=== PATIENT | female | born 1970 | race Caucasian/White ===

== ENCOUNTER 2018-08-08 13:48 | Emergency (ER) | payer SELFPAY ==
[~2018-08-08] VITALS: Ht 165.1 cm; Wt 49.0 kg
[~2018-08-08 13:48] MED LIST: CIPR500T94 PO; DM/P295L2 PO; ONDA4TAB10 SL; dayquil PO
--- NOTE | 2018-08-08 14:03 | PHYS DOC ---
Past History Past Medical History: CAD, Pneumonia Additional Past Medical Histor: oral cancer Past Surgical History: , Tubal ligation, Other Additional Past Surgical Histo: feeding tube Smoking: Cigarettes Alcohol Use: Heavy Drug Use: Marijuana Adult General Chief Complaint Chief Complaint: OTHER COMPLAINTS HPI HPI Patient is a 48-year-old female presents with increasing difficulty swallowing, feeling like she is getting a gagging/choking sensation. This is been going on for the past 3-4 days. Patient has a history of an oral cancer that is pending surgery in [address] Cuba at . She also has a feeding tube placed due to difficulty swallowing. There were 3 additional buttons placed with this feeding tube and one of those came off and they are concerned about that as well. Patient is here with her sister. Denies any difficulty breathing. Nothing seems to make the symptoms better or worse.[] Review of Systems Review of Systems Constitutional: Denies fever or chills [] Eyes: Denies change in visual acuity, redness, or eye pain [] HENT: Denies nasal congestion, see history of present illness[] Respiratory: Denies cough or shortness of breath [] Cardiovascular: No chest pain or palpitations[] GI: Denies abdominal pain, nausea, vomiting, bloody stools or diarrhea [] : Denies dysuria or hematuria [] Musculoskeletal: Denies back pain or joint pain [] Integument: Denies rash or skin lesions [] Neurologic: Denies headache, focal weakness or sensory changes [] Endocrine: Denies polyuria or polydipsia [] All other systems were reviewed and found to be within normal limits, except as documented in this note. Allergies Allergies Allergies Coded Allergies Type Severity Reaction Last Updated Verified No Known Drug Allergies 08/08/18 No Physical Exam Physical Exam Constitutional: Well developed, cachectic, mild discomfort, ill appearing. [] HENT: Normocephalic, atraumatic, bilateral external ears normal, oropharynx shows elevation of the right side at the base of the tongue. Maceration on the oral pharynx, possible thrush. Uvula is midline. nose normal. [] Eyes: PERRLA, EOMI, conjunctiva normal, no discharge. [] Neck: Normal range of motion, no tenderness, supple, no stridor. [] Cardiovascular:Heart rate is tachycardic with a regular rhythm, no murmur [] Lungs & Thorax: Bilateral breath sounds clear to auscultation [] Abdomen: Bowel sounds normal, soft, no tenderness, no masses, no pulsatile m asses. Feeding tube is in place. 2 "buttons" are in place at the 11:00 and the 7 o'clock position reference the feeding tube.[] Skin: Warm, dry, no erythema, no rash. [] Back: No tenderness, no CVA tenderness. [] Extremities: No tenderness, no cyanosis, no clubbing, ROM intact, no edema. [] Neurologic: Alert and oriented X 3, normal motor function, normal sensory function, no focal deficits noted. [] Psychologic: Affect normal, judgement normal, mood normal. [] EKG EKG [] Radiology/Procedures Radiology/Procedures [] Course & Med Decision Making Course & Med Decision Making Pertinent Labs and Imaging studies reviewed. (See chart for details) ED course: Patient arrived, was placed in bed, and tolerated exam well. She was noted to be tachycardic so IV access was established, basic lab work was obtained, an IV fluids were started. Consultation was made with Dr. Cuba at . He was in surgery, however, discussed care with his nurse who knows the patient well. Recommendation was for the patient to be transferred to to the ENT surgery service for further evaluation and treatment given her cancer history and failure of current outpatient care. She was accepted by Dr. Mejia at for further evaluation within the emergency department. Discussed laboratory findings and plan with patient and family, both of whom indicated understanding. She was transferred in improved condition. 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 Foregoing specific treatment for the calcium given that she is dehydrated, and there will be some improvement with d ilutional effects of the saline. She is being transferred due to not having ENT nor oncology services available here at [facility]. She does not appear to be in imminent threat of airway compromise, so do not believe that intubation is indicated at this time.[] Dragon Disclaimer Dragon Disclaimer This electronic medical record was generated, in whole or in part, using a voice recognition dictation system. Departure Departure: Impression: Primary Impression: Oral malignant neoplasm Additional Impressions: Hypercalcemia Dehydration Complication of feeding tube Disposition: 05 TRANSFER OTHER Condition: IMPROVED Referrals: PCP,NO (PCP) Problem Qualifiers RALEIGH VARGAS DO August 08, 2018 14:03
[2018-08-08] MEDS: IV NORMAL SALINE 1,000ML 1,000 ML IV ONE ×2 (14:11→15:29)
[2018-08-08 14:28] LABS: BASO % 0 % (0-3); EOS # 0.2 x10^3/uL (0.0-0.7); EOS % 1 % (0-3); HEMATOCRIT 40.9 % (36.0-47.0); HEMOGLOBIN 13.7 g/dL (12.0-15.5); LYMPH # 0.8 x10^3/uL (1.0-4.8); LYMPH % 3 % (24-48); MEAN CORPUSCULAR HEMOGLOBIN 31 pg (25-35); MEAN CORPUSCULAR HGB CONC 34 g/dL (31-37); MEAN CORPUSCULAR VOLUME 93 fL (79-100); MONO # 2.5 x10^3/uL (0.0-1.1); MONO % 8 % (0-9); NEUT # 30.1 x10^3uL (1.8-7.7); NEUT % 89 % (31-73); PLATELET COUNT 419 x10^3/uL (140-400); RED BLOOD COUNT 4.38 x10^6/uL (3.50-5.40); RED CELL DISTRIBUTION WIDTH 13.1 % (11.5-14.5); WHITE BLOOD COUNT 33.7 x10^3/uL (4.0-11.0)
[2018-08-08 14:39] LABS: ALBUMIN 3.3 g/dL (3.4-5.0); ALBUMIN/GLOBULIN RATIO 0.7 (1.0-1.7); CREATININE 0.8 mg/dL (0.6-1.0); GFR 76.2; POTASSIUM 3.6 mmol/L (3.5-5.1); TOTAL BILIRUBIN 0.4 mg/dL (0.2-1.0); TOTAL PROTEIN 8.1 g/dL (6.4-8.2)
[2018-08-08 14:41] LABS: CALCIUM 14.4 mg/dL (8.5-10.1)
[2018-08-08 15:13] LABS: % ATYL 2 % (0-0); % LYMPHS 2 % (24-48); % MONOS 3 % (0-10); % SEGS 93 % (35-66); PLT ESTIMATE ADEQUATE (ADEQUATE)
[2018-08-08 15:15] LABS: ANISOCYTOSIS SLIGHT; TOXIC GRANULATION SLIGHT; TOXIC VACUOLATION PRESENT
[2018-08-08 16:00] VITALS: BP 130/71
== END 2018-08-08 16:00 | disposition short-term general hospital (02) ==
LOC: ER 13:48
DX: C06.9 Malignant neoplasm of mouth, unspecified (principal); E83.52 Hypercalcemia; E86.0 Dehydration; K94.29 Other complications of gastrostomy; I25.10 Atherosclerotic heart disease of native coronary artery without angina pectoris; F17.210 Nicotine dependence, cigarettes, uncomplicated; F10.20 Alcohol dependence, uncomplicated; Y90.9 Presence of alcohol in blood, level not specified
CPT/HCPCS: 36415; 80053; 85007; 85025; 96360; 99285-25; J7030

== ENCOUNTER 2018-08-27 15:46 | Emergency (ER) | payer SELFPAY ==
[~2018-08-27] VITALS: Ht 165.1 cm; Wt 49.0 kg
[2018-08-27 16:15] VITALS: BP 122/65
[2018-08-27] MEDS ORDERED: roxicodone PEG (16:25)
--- NOTE | 2018-08-27 16:25 | PHYS DOC ---
Past History Past Medical History: CAD, Cancer, Pneumonia Additional Past Medical Histor: oral cancer Past Surgical History: , Tubal ligation, Other Additional Past Surgical Histo: feeding tube, oral cancer resection, tracheostomy Smoking: Cigarettes, Quit Less Than 1 Year Alcohol Use: Heavy Drug Use: Marijuana Adult General Chief Complaint Chief Complaint: MULTIPLE COMPLAINTS HPI HPI Patient is a 48-year-old female presents for pain management. She had oral cancer resection surgery performed at on 09 Aug 2018. Since that time she has been on Roxicodone, taking approximately 10 mL of the 1 milligram per milliliter, hydrocodone, every 4 hours. She ran out of the medicine at approximately 8:00 this morning. She denies any chest pain or difficulty breathing. No fever.[] Review of Systems Review of Systems Constitutional: Denies fever or chills [] Eyes: Denies change in visual acuity, redness, or eye pain [] HENT: Denies nasal congestion or sore throat [] Respiratory: Denies cough or shortness of breath [] Cardiovascular: No chest pain or palpitations[] GI: Denies abdominal pain, nausea, vomiting, bloody stools or diarrhea [] : Denies dysuria or hematuria [] Musculoskeletal: Denies back pain or joint pain [] Integument: Denies rash or skin lesions [] Neurologic: Denies headache, focal weakness or sensory changes [] Endocrine: Denies polyuria or polydipsia [] All other systems were reviewed and found to be within normal limits, except as documented in this note. Allergies Allergies Allergies Coded Allergies Type Severity Reaction Last Updated Verified No Known Drug Allergies 08/08/18 No Physical Exam Physical Exam Constitutional: Well developed, well nourished, no acute distress, non-toxic appearance. [] HENT: Normocephalic, atraumatic, bilateral external ears normal, oropharynx moist, healing tissue present, nose normal. [] Eyes: PERRLA, EOMI, conjunctiva normal, no discharge. [] Neck: Normal range of motion, no tenderness, supple, no stridor. Tracheostomy in place[] Cardiovascular:Heart rate regular rhythm, no murmur [] Lungs & Thorax: Bilateral breath sounds clear to auscultation [] Abdomen: Bowel sounds normal, soft, no tenderness, no masses, no pulsatile masses. [] Skin: Warm, dry, no erythema, no rash. [] Back: No tenderness, no CVA tenderness. [] Extremities: No tenderness, no cyanosis, no clubbing, ROM intact, no edema. [] Neurologic: Alert and oriented X 3, normal motor function, normal sensory function, no focal deficits noted. [] Psychologic: Affect normal, judgement normal, mood normal. [] EKG EKG [] Radiology/Procedures Radiology/Procedures [] Course & Med Decision Making Course & Med Decision Making Pertinent Labs and Imaging studies reviewed. (See chart for details) Medical decision making: Patient with healing post oral cancer surgery. Will prescribe short course given that it is the weekend, of narcotic pain medicine, with instructions for her to follow up for the longer-term care through her primary care/surgical team.[] Dragon Disclaimer Dragon Disclaimer This electronic medical record was generated, in whole or in part, using a voice recognition dictation system. Departure Departure: Impression: Primary Impression: Pain management Disposition: HOME, SELF-CARE Condition: IMPROVED Referrals: PCPJAELYN (PCP) Patient Instructions: Chronic Pain Management Additional Instructions: Follow-up with your primary care/surgical team for long-term pain management. Call them tomorrow. Return to the ER if worsening discomfort, difficulty breathing, or any other concerns. Scripts [roxicodone] No Conflict Check 5-15 MG PEG Q4HRS PRN for PAIN, #100 ML Oxycodone 1 mg / mL disp 100 ml (100 ml) 5-15 ml PO q4 hours prn pain via PEG tube Prov: RALEIGH VARGAS DO 08/27/18 RALEIGH VARGAS DO Aug 27, 2018 16:25
[2018-08-27] MEDS ORDERED: oxyCODONE ORAL SOLUTION 5 MG/5 ML SOLUTION PEG PRN (16:30)
== END 2018-08-27 17:19 | disposition home or self-care (01) ==
LOC: ER 15:46
DX: G89.3 Neoplasm related pain (acute) (chronic) (principal); I25.10 Atherosclerotic heart disease of native coronary artery without angina pectoris; F10.20 Alcohol dependence, uncomplicated; Z87.891 Personal history of nicotine dependence; Z93.0 Tracheostomy status; Z98.890 Other specified postprocedural states; Y90.9 Presence of alcohol in blood, level not specified
CPT/HCPCS: 99283

== ENCOUNTER 2018-11-22 15:37 | Emergency (ER) | payer OTHER ==
[~2018-11-22 15:37] MED LIST changes: +roxicodone PEG
== END 2018-11-22 15:55 | disposition left against medical advice (07) ==
LOC: ER 15:37
DX: K94.23 Gastrostomy malfunction (principal); Z53.21 Procedure and treatment not carried out due to patient leaving prior to being seen by health care provider

== ENCOUNTER 2019-11-01 11:46 | Emergency (ER) | payer OTHER ==
[~2019-11-01] VITALS: Ht 165.1 cm; Wt 49.1 kg
--- NOTE | 2019-11-01 12:00 | PHYS DOC ---
Past History Past Medical History: CAD, Cancer, Pneumonia Additional Past Medical Histor: oral cancer Past Surgical History: Cancer Surgery, , Tubal ligation, Other Additional Past Surgical Histo: feeding tube, oral cancer resection, tracheostomy Smoking: Cigarettes, Quit Less Than 1 Year Alcohol Use: Heavy Drug Use: Marijuana General Adult EDM: Chief Complaint: MECHANICAL FALL HPI: HPI: Patient is a 49 year old female who presents for evaluation of facial injury, dental injury after a mechanical fall. Patient was reportedly at a store when she tripped over a threshold. She fell forward landing on her face. She has a large hematoma to her forehead, a small nasal laceration and an intraoral dental injury. Bleeding was controlled prior to arrival. Patient has a tracheostomy at baseline. Ambulance brought patient in for evaluation. After arrival she clarified that she did lose consciousness after the fall and does not remember falling. Patient is not on a blood thinner currently but several months ago was on Plavix. Patient denies any chest pain or shortness of air. No other obvious areas of injury besides her head and face and mouth noted. Patient arrived via EMS for evaluation Review of Systems: Review of Systems: Constitutional: Denies fever or chills Eyes: Denies change in visual acuity HENT: Denies nasal congestion or sore throat Respiratory: Denies cough or shortness of breath Cardiovascular: Denies chest pain or edema GI: Denies abdominal pain, nausea, vomiting, bloody stools or diarrhea : Denies dysuria Musculoskeletal: Denies back pain or joint pain Integument: Denies rash Neurologic: mild current headache, no focal weakness or sensory changes Endocrine: Denies polyuria or polydipsia Lymphatic: Denies swollen glands Psychiatric: Denies depression or anxiety Heart Score: Risk Factors: Risk Factors: DM, Current or recent (<one month) smoker, HTN, HLP, family history of CAD, obesity. Risk Scores: Score 0 - 3: 2.5% MACE over next 6 weeks - Discharge Home Score 4 - 6: 20.3% MACE over next 6 weeks - Admit for Clinical Observation Score 7 - 10: 72.7% MACE over next 6 weeks - Early Invasive Strategies Allergies: Allergies: Allergies Coded Allergies Type Severity Reaction Last Updated Verified No Known Drug Allergies 08/08/18 No Physical Exam: PE: Constitutional: Well developed, well nourished, mild acute distress, non-toxic appearance. [] HENT: large frontal hematoma, bilateral external ears normal, oropharynx moist, bleeding around the right lower jaw and gumline, possible loose tooth noted. Patient is unable to open her mouth very wide but that may be baseline status because she has had prior surgery on her mouth and tongue. [] Eyes: PERRL, EOMI, conjunctiva normal, no discharge. [] Neck: Normal range of motion, no tenderness, supple, no stridor, trach in place, no bleeding from the trach. [] Cardiovascular:Heart rate regular rhythm, no murmur [] Lungs & Thorax: Bilateral breath sounds clear to auscultation [] Abdomen: Bowel sounds normal, soft, no tenderness, no masses, no pulsatile ma sses. [] Skin: Warm, dry, no erythema, small puncture wound type laceration bridge of nose. [] Back: No tenderness. [] Extremities: No tenderness, no cyanosis, no clubbing, ROM intact, no edema. [] Neurologic: Alert and oriented, normal motor function, normal sensory function, no focal deficits noted. [] Psychologic: Affect normal, judgement normal, mood normal. [] Current Patient Data: Labs: Laboratory Tests Test 11/01/19 12:20 White Blood Count 10.2 x10^3/uL Red Blood Count 4.23 x10^6/uL Hemoglobin 13.1 g/dL Hematocrit 39.7 % Mean Corpuscular Volume 94 fL Mean Corpuscular Hemoglobin 31 pg Mean Corpuscular Hemoglobin Concent 33 g/dL Red Cell Distribution Width 14.9 % Platelet Count 236 x10^3/uL Neutrophils (%) (Auto) 86 % Lymphocytes (%) (Auto) 5 % Monocytes (%) (Auto) 7 % Eosinophils (%) (Auto) 2 % Basophils (%) (Auto) 0 % Neutrophils # (Auto) 8.7 x10^3uL Lymphocytes # (Auto) 0.5 x10^3/uL Monocytes # (Auto) 0.7 x10^3/uL Eosinophils # (Auto) 0.2 x10^3/uL Basophils # (Auto) 0.0 x10^3/uL Sodium Level 131 mmol/L Potassium Level 3.5 mmol/L Chloride Level 94 mmol/L Carbon Dioxide Level 26 mmol/L Anion Gap 11 Blood Urea Nitrogen 3 mg/dL Creatinine 0.8 mg/dL Estimated GFR (Cockcroft-Gault) 75.9 BUN/Creatinine Ratio 4 Glucose Level 167 mg/dL Calcium Level 9.2 mg/dL Total Bilirubin 1.1 mg/dL Aspartate Amino Transf (AST/SGOT) 190 U/L Alanine Aminotransferase (ALT/SGPT) 175 U/L Alkaline Phosphatase 121 U/L Total Protein 7.4 g/dL Albumin 3.4 g/dL Albumin/Globulin Ratio 0.9 Current Medications Medications (Trade) Dose Ordered Sig/Carol Route PRN Reason Start Time Stop Time Status Last Admin Dose Admin Ondansetron HCl (Zofran) 4 mg 1X ONCE IVP 11/01/19 12:15 11/01/19 12:41 DC 11/01/19 12:38 Diphtheria/ Pertussis/Tetanus Vacc (ADACEL TDap SYRINGE) 0.5 ml ONCE ONCE VAX IM 11/01/19 12:45 11/01/19 12:46 DC Vital Signs: Vital Signs Date Time Temp Pulse Resp B/P (MAP) Pulse Ox O2 Delivery O2 Flow Rate FiO2 11/01/19 11:50 98.4 107 16 97/54 (68) 95 Room Air EKG: EKG: [] Radiology/Procedures: Radiology/Procedures: [address] [address] IMAGING REPORT Signed PATIENT: YO WILKINS ACCOUNT: [id number] : 1970 LOCATION: ER AGE: 49 SEX: F EXAM STATUS: REG ER ORD. PHYSICIAN: NIKIA DUNCAN DO REASON: trauma fall, facial injury PROCEDURE: CT CERVICAL SPINE WO CONTRAST CT CERVICAL SPINE WO CONTRAST, CT HEAD AND MAXILLOFACIAL WO Date: 11/01/2019 11:50 AM Clinical Indication: trauma fall, facial injury, pain Comparison: None. Technique: 5 mm axial tomographic images were obtained of the head without contrast. These were viewed on brain and bone windows. Axial helical images of the face were obtained without contrast. Axial and coronal reconstruction was performed. CT imaging of the cervical spine was performed without contrast. Coronal and sagittal reformatted images were performed. One or more of the following dose reduction techniques were utilized: Automated exposure control (AEC), Adjustment of mA and/or kV according to patient size, Use of iterative reconstruction technique such as ASiR, CT scan done according to ALARA and image gently/image wisely CT HEAD FINDINGS: The brain parenchyma is normal in attenuation. No intra- or extra-axial mass or fluid collection. No acute hemorrhage. The ventricles are normal in size, shape, and morphology. The solorzano-white matter junction is normal. The basilar cisterns are patent. Opacification of the left middle ear and mastoid air cells. Trace right mastoid fluid. No aggressive osseous lesion or fracture. Frontal scalp hematoma. CT FACE FINDINGS: There is no acute facial bone fracture. Mild frontal and left maxillary sinus mucosal thickening. Small air hemorrhage levels within both maxillary sinuses. The orbits are normal. The globes are intact. Left mandibular body resection and ORIF. Severe degenerative changes of the right temporomandibular joint. CT CERVICAL SPINE FINDINGS: The cervical spine is normally aligned. No acute fracture. No aggressive lytic or blastic osseous lesion. Mild multilevel degenerative disc height loss. No high-grade spinal canal stenosis or neural foraminal narrowing. Left thyroid calcified nodule measuring less than 1.5 cm, not requiring further evaluation based on size criteria. Postsurgical changes of radical neck dissection and glossectomy with free flap reconstruction. Secretions or debris in the pharynx. Tracheostomy. The visualized lung apices are clear. Impression: 1. No acute intracranial process. Frontal scalp hematoma. 2. No acute facial bone fracture. 3. No acute osseous abnormality of the cervical spine. 4. Postsurgical changes of radical neck dissection with glossectomy and free flap reconstruction. Electronically signed by: Waqar Arellano MD (11/01/2019 12:42 PM) [id number] DICTATED AND SIGNED BY: WAQAR ARELLANO MD DATE: 11/01/19 124 CC: ALLEN COLMENARES MD; NIKIA DUNCAN DO ~ [] Impressions: [address] [address] IMAGING REPORT Signed PATIENT: YO WILKINS ACCOUNT: [id number] : 1970 LOCATION: ER AGE: 49 SEX: F EXAM STATUS: REG ER ORD. PHYSICIAN: NIKIA DUNCAN DO REASON: pain, injury, trauma PROCEDURE: CHEST AP ONLY Single view chest dated 11/01/2019. No comparison available. CLINICAL INDICATION: Pain. FINDINGS: single upright portable exam performed. Heart and mediastinal contours within normal limits. Lungs are clear. No consolidation or pleural effusion. Tracheostomy tube with tip at mid trachea. Surgical clips in the left axilla. Deformity of the left scapula, possibly related to prior surgery. IMPRESSION: 1. No acute radiographic abnormality. 2. Deformity of the left scapula, possibly related to prior surgery or prior trauma. Correlate clinically. Electronically signed by: Saurabh Kamara MD (11/01/2019 1:24 PM) [facility] DICTATED AND SIGNED BY: SAURABH KAMARA MD DATE: 11/01/19 1324 CC: ALLEN COLMENARES MD; NIKIA DUNCAN DO ~ Course & Med Decision Making: Course & Med Decision Making Pertinent Labs and Imaging studies reviewed. (See chart for details) [] Dragon Disclaimer: Dragon Disclaimer: This electronic medical record was generated, in whole or in part, using a voice recognition dictation system. [id number] hospitalist at this facility was contacted. Due to patient's complex prior facial surgeries and continued mild intraoral bleeding will transfer to a trauma center as requested [id number] transfer team was contacted and Dr. Tay Solano is the accepting trauma surgeon. Patient will be sent for an ED to ED transfer for trauma evaluation. Bleeding is controlled at this time. Patient has an open airway and is breathing adequately. CT scans will be clouded to that facility. Clinically patient does not have evidence of a pneumothorax or other significant trauma. Patient states she did not lose consciousness after the fall. Her forehead hematoma is expanding and there is a pressure dressing and ice in place. The facial injuries are puncture type wounds. Tetanus shot was updated. 1327 EMS called, no obvious pneumothorax seen on xray. Departure Departure: Impression: Primary Impression: Concussion Qualified Codes: S06.0X1A - Concussion with loss of consciousness of 30 minutes or less, initial encounter Additional Impressions: Gum laceration History of tracheostomy History of tongue cancer Traumatic hematoma of forehead Qualified Codes: S00.83XA - Contusion of other part of head, initial encounter Disposition: 05 TRANSFER OTHER ([facility] for ED to ED transfer for trauma evaluation under care of Dr. Sid Solano) Condition: STABLE Referrals: PCP,NO (PCP) Justification of Admission: Justification of Admission: Justification of Admission Dx: Yes Comments: trauma evaluation NIKIA DUNCAN DO Nov 01, 2019 12:00
[2019-11-01] MEDS ORDERED: ONDANSETRON PF 4 MG/2 ML VIAL. IVP ONE (12:15)
[2019-11-01] MEDS ORDERED: DIPH,PERTUSS(ACELL),TET VAC/PF 0.5 ML SYRINGE. VAX IM ONE (12:45)
--- NOTE | 2019-11-01 12:45 | RAD ---
CT CERVICAL SPINE WO CONTRAST, CT HEAD AND MAXILLOFACIAL WO Date: 11/01/2019 11:50 AM Clinical Indication: trauma fall, facial injury, pain Comparison: None. Technique: 5 mm axial tomographic images were obtained of the head without contrast. These were viewed on brain and bone windows. Axial helical images of the face were obtained without contrast. Axial and coronal reconstruction was performed. CT imaging of the cervical spine was performed without contrast. Coronal and sagittal reformatted images were performed. One or more of the following dose reduction techniques were utilized: Automated exposure control (AEC), Adjustment of mA and/or kV according to patient size, Use of iterative reconstruction technique such as ASiR, CT scan done according to ALARA and image gently/image wisely CT HEAD FINDINGS: The brain parenchyma is normal in attenuation. No intra- or extra-axial mass or fluid collection. No acute hemorrhage. The ventricles are normal in size, shape, and morphology. The solorzano-white matter junction is normal. The basilar cisterns are patent. Opacification of the left middle ear and mastoid air cells. Trace right mastoid fluid. No aggressive osseous lesion or fracture. Frontal scalp hematoma. CT FACE FINDINGS: There is no acute facial bone fracture. Mild frontal and left maxillary sinus mucosal thickening. Small air hemorrhage levels within both maxillary sinuses. The orbits are normal. The globes are intact. Left mandibular body resection and ORIF. Severe degenerative changes of the right temporomandibular joint. CT CERVICAL SPINE FINDINGS: The cervical spine is normally aligned. No acute fracture. No aggressive lytic or blastic osseous lesion. Mild multilevel degenerative disc height loss. No high-grade spinal canal stenosis or neural foraminal narrowing. Left thyroid calcified nodule measuring less than 1.5 cm, not requiring further evaluation based on size criteria. Postsurgical changes of radical neck dissection and glossectomy with free flap reconstruction. Secretions or debris in the pharynx. Tracheostomy. The visualized lung apices are clear. Impression: 1. No acute intracranial process. Frontal scalp hematoma. 2. No acute facial bone fracture. 3. No acute osseous abnormality of the cervical spine. 4. Postsurgical changes of radical neck dissection with glossectomy and free flap reconstruction. Electronically signed by: Roberto Carlos Arellano MD (11/01/2019 12:42 PM) [id number]
[2019-11-01 12:46] LABS: BASO % 0 % (0-3); EOS # 0.2 x10^3/uL (0.0-0.7); EOS % 2 % (0-3); HEMATOCRIT 39.7 % (36.0-47.0); HEMOGLOBIN 13.1 g/dL (12.0-15.5); LYMPH # 0.5 x10^3/uL (1.0-4.8); LYMPH % 5 % (24-48); MEAN CORPUSCULAR HEMOGLOBIN 31 pg (25-35); MEAN CORPUSCULAR HGB CONC 33 g/dL (31-37); MEAN CORPUSCULAR VOLUME 94 fL (79-100); MONO # 0.7 x10^3/uL (0.0-1.1); MONO % 7 % (0-9); NEUT # 8.7 x10^3uL (1.8-7.7); NEUT % 86 % (31-73); PLATELET COUNT 236 x10^3/uL (140-400); RED BLOOD COUNT 4.23 x10^6/uL (3.50-5.40); RED CELL DISTRIBUTION WIDTH 14.9 % (11.5-14.5); WHITE BLOOD COUNT 10.2 x10^3/uL (4.0-11.0)
[2019-11-01 12:53] LABS: CALCIUM 9.2 mg/dL (8.5-10.1); CREATININE 0.8 mg/dL (0.6-1.0); GFR 75.9; POTASSIUM 3.5 mmol/L (3.5-5.1)
[2019-11-01 12:59] LABS: ALBUMIN 3.4 g/dL (3.4-5.0); ALBUMIN/GLOBULIN RATIO 0.9 (1.0-1.7); TOTAL BILIRUBIN 1.1 mg/dL (0.2-1.0); TOTAL PROTEIN 7.4 g/dL (6.4-8.2)
[2019-11-01] MEDS ORDERED: IV NORMAL SALINE 50ML 50 ML ONE (13:20)
[2019-11-01] MEDS ORDERED: ceFAZolin SODIUM 1 GM VIAL ONE (13:20)
--- NOTE | 2019-11-01 13:27 | RAD ---
Single view chest dated 11/01/2019. No comparison available. CLINICAL INDICATION: Pain. FINDINGS: single upright portable exam performed. Heart and mediastinal contours within normal limits. Lungs are clear. No consolidation or pleural effusion. Tracheostomy tube with tip at mid trachea. Surgical clips in the left axilla. Deformity of the left scapula, possibly related to prior surgery. IMPRESSION: 1. No acute radiographic abnormality. 2. Deformity of the left scapula, possibly related to prior surgery or prior trauma. Correlate clinically. Electronically signed by: Saurabh Kamara MD (11/01/2019 1:24 PM) CARRI
[2019-11-01 13:30] VITALS: BP 138/88
== END 2019-11-01 13:53 | disposition short-term general hospital (02) ==
LOC: ER 11:46
DX: S06.0X0A Concussion without loss of consciousness, initial encounter (principal); S01.512A Laceration without foreign body of oral cavity, initial encounter; S01.21XA Laceration without foreign body of nose, initial encounter; I25.10 Atherosclerotic heart disease of native coronary artery without angina pectoris; Z87.891 Personal history of nicotine dependence; Z93.0 Tracheostomy status; Z85.810 Personal history of malignant neoplasm of tongue; W01.0XXA Fall on same level from slipping, tripping and stumbling without subsequent striking against object, initial encounter; Y93.89 Activity, other specified; Y92.89 Other specified places as the place of occurrence of the external cause; Y99.8 Other external cause status
CPT/HCPCS: 36415; 70450; 70486; 71045; 72125; 80053; 85025; 90471; 90715; 96365; 96375; 99285; J0690; J2405

== ENCOUNTER 2020-05-13 11:10 | Emergency (ER) | payer OTHER ==
[2020-05-13] MEDS ORDERED: IOHEXOL 300 MG/ML 50 ML VIAL. ONE (11:33)
--- NOTE | 2020-05-14 12:02 | RAD ---
EXAM: Supine AP view of the abdomen DATE: 05/13/2020 1:00 PM INDICATION: Reason: G-TUBE PLACEMENT COMPARISON: No Prior FINDINGS/ IMPRESSION: Contrast is seen within the stomach. No extraluminal contrast is identified. No evidence for leak or extravasation. No abnormal small or large bowel dilatation. Moderate colonic stool content. Evaluation for free in traperitoneal gas is limited on this supine exam. Electronically signed by: Marcelino Anand MD (05/14/2020 12:00 PM) [id number]
== END 2020-05-13 14:09 | disposition home or self-care (01) ==
LOC: ER 11:10
DX: K94.23 Gastrostomy malfunction (principal)
CPT/HCPCS: 43762; 74018; 99284; Q9967; 99283

== ENCOUNTER 2021-05-31 17:04 | Emergency (ER) | payer OTHER ==
[~2021-05-31] VITALS: Ht 157.5 cm; Wt 45.0 kg
--- NOTE | 2021-05-31 18:08 | PHYS DOC ---
Past History Past Medical History: CAD, Cancer, Pneumonia Additional Past Medical Histor: TONGUE CANCER (LYNSEY JOHNSON APRN) Past Surgical History: Other Additional Past Surgical Histo: RADIATION, FEEDING TUBE (LYNSEY JOHNSON APRN) Smoking: Cigarettes, Quit Less Than 1 Year Alcohol Use: Heavy Additional Alcohol Information: PT REPORTS SHE CONSUMES BEER MOST ALL DAY. Drug Use: Marijuana (LYNSEY JOHNSON APRN) General Adult EDM: Chief Complaint: FLANK PAIN HPI: HPI: Patient is a 51-year-old female who presents to the emergency department today for right-sided flank pain that started 2 to 3 days ago with nausea, vomiting. Patient has chronic diarrhea as she has a feeding tube. Patient is an alcoholic. Patient denies dysuria, fevers, blood in her stools, kidney stone history. Patient has a trach to be cancer. Patient does not wear oxygen at home, her oxygen saturation is 89% on room air and she reports that that is where she normally runs. (LYNSEY JOHNSON APRN) Review of Systems: Review of Systems: Constitutional: See HPI HENT: See HPI GI: See HPI : See HPI Musculoskeletal: See HPI (LYNSEY JOHNSON APRN) Allergies: Allergies: Allergies Coded Allergies Type Severity Reaction Last Updated Verified No Known Drug Allergies 05/31/21 No (LYNSEY JOHNSON APRN) Physical Exam: PE: Constitutional: Well developed, well nourished, no acute distress, non-toxic appearance. [] HENT: Normocephalic, atraumatic, bilateral external ears normal, oropharynx moist, no oral exudates, nose normal. [] Eyes: PERRL, EOMI, conjunctiva normal, no discharge. [] Neck: Normal range of motion, trach present, no tenderness, supple, no stridor. [] Cardiovascular:Heart rate regular rhythm, no murmur [] Lungs & Thorax: Bilateral breath sounds clear to auscultation [] Abdomen: Bowel sounds normal, soft, feeding tube in left upper quadrant, tenderness with palpation to right upper quadrant, no rigidity, no rebound tenderness, no guarding, no masses, no pulsatile masses. [] Skin: Warm, dry, no erythema, no rash. [] Back: Normal range of motion, bilateral CVA tenderness worse on right Extremities: No tenderness, no cyanosis, no clubbing, ROM intact, no edema. [] Neurologic: Alert and oriented X 3, normal motor function, normal sensory func tion, no focal deficits noted. [] Psychologic: Affect normal, judgement normal, mood normal. [] (LYNSEY JOHNSON APRN) Current Patient Data: Labs: Laboratory Tests Test 05/31/21 18:15 05/31/21 18:19 05/31/21 19:39 05/31/21 20:00 Urine Collection Type Clean catch Urine Color Yellow Urine Clarity Hazy Urine pH 6.0 Urine Specific [place] 1.015 Urine Protein Neg Urine Glucose (UA) Neg mg/dL Urine Ketones (Stick) Trace mg/dL Urine Blood Trace Urine Nitrite Pos Urine Bilirubin Neg Urine Urobilinogen Dipstick 0.2 mg/dL Urine Leukocyte Esterase Small Urine RBC 1-2 /HPF Urine WBC 11-20 /HPF Urine Squamous Epithelial Cells Few /LPF Urine Bacteria Many /HPF White Blood Count 4.5 x10^3/uL Red Blood Count 4.32 x10^6/uL Hemoglobin 14.0 g/dL Hematocrit 42.3 % Mean Corpuscular Volume 98 fL Mean Corpuscular Hemoglobin 32 pg Mean Corpuscular Hemoglobin Concent 33 g/dL Red Cell Distribution Width 17.6 % Platelet Count 115 x10^3/uL Neutrophils (%) (Auto) 84 % Lymphocytes (%) (Auto) 5 % Monocytes (%) (Auto) 8 % Eosinophils (%) (Auto) 1 % Basophils (%) (Auto) 1 % Neutrophils # (Auto) 3.8 x10^3uL Lymphocytes # (Auto) 0.2 x10^3/uL Monocytes # (Auto) 0.4 x10^3/uL Eosinophils # (Auto) 0.1 x10^3/uL Basophils # (Auto) 0.1 x10^3/uL Segmented Neutrophils % 87 % Lymphocytes % 7 % Monocytes % 3 % Eosinophils % 1 % Basophils % 2 % Platelet Estimate Decreased Anisocytosis Slight Sodium Level 140 mmol/L Potassium Level 4.0 mmol/L Chloride Level 100 mmol/L Carbon Dioxide Level 24 mmol/L Anion Gap 16 Blood Urea Nitrogen 3 mg/dL Creatinine 0.5 mg/dL Estimated GFR (Cockcroft-Gault) 129.6 BUN/Creatinine Ratio 6 Glucose Level 72 mg/dL Calcium Level 8.7 mg/dL Total Bilirubin 0.5 mg/dL Aspartate Amino Transf (AST/SGOT) 639 U/L Alanine Aminotransferase (ALT/SGPT) 177 U/L Alkaline Phosphatase 302 U/L Total Protein 8.7 g/dL Albumin 3.2 g/dL Albumin/Globulin Ratio 0.6 Lipase 72 U/L Troponin I High Sensitivity 9 ng/L Lactic Acid Level 3.5 mmol/L Current Medications Medications (Trade) Dose Ordered Sig/Carol Route PRN Reason Start Time Stop Time Status Last Admin Dose Admin Sodium Chloride 1,000 ml @ 1,000 mls/hr Q1H IV 05/31/21 18:15 05/31/21 19:14 DC 05/31/21 18:23 Fentanyl Citrate (Fentanyl 2ml Vial) 50 mcg 1X ONCE IVP 05/31/21 18:15 05/31/21 18:30 DC 05/31/21 18:23 Ondansetron HCl (Zofran) 4 mg 1X ONCE IVP 05/31/21 18:15 05/31/21 18:30 DC 05/31/21 18:22 Ibuprofen (Motrin) 600 mg 1X ONCE PO 05/31/21 19:45 05/31/21 19:46 DC 05/31/21 20:17 Ceftriaxone Sodium 1 gm/ Sodium Chloride 50 ml @ 100 mls/hr 1X ONCE IV 05/31/21 19:45 05/31/21 20:14 DC 05/31/21 20:18 Sodium Chloride 50 ml @ As Directed STK-MED ONCE .ROUTE 05/31/21 19:55 05/31/21 19:56 DC Ceftriaxone Sodium (Rocephin) 1 gm STK-MED ONCE .ROUTE 05/31/21 19:56 05/31/21 19:56 DC Vital Signs: Vital Signs Date Time Temp Pulse Resp B/P (MAP) Pulse Ox O2 Delivery O2 Flow Rate FiO2 05/31/21 17:48 99.2 107 20 154/94 (114) 89 Room Air (LYNSEY JOHNSON APRN) EKG: EKG: [] (LYNSEY JOHNSON APRN) Radiology/Procedures: Radiology/Procedures: []PROCEDURE: PORTABLE CHEST 1V Exam: Chest one view INDICATION: Nausea vomiting TECHNIQUE: Frontal view of the chest Comparisons: 11/01/2019 FINDINGS: Tracheostomy tube noted. The cardiomediastinal silhouette and pulmonary vessels are within normal limits. Patchy airspace disease at the right lung base. No pleural effusion. IMPRESSION: Right basilar airspace disease. Electronically signed by: Aniceto Olvera MD (05/31/2021 8:39 PM) [facility] DICTATED AND SIGNED BY: ANICETO OLVERA MD DATE: 05/31/212037 CC: WENDIE GUEVARA MD; LYNSEY JOHNSON RADIATION THERAPIST ~MTH0 0 PROCEDURE: CT ABDOMEN PELVIS WO CONTRAST Exam: CT of abdomen and pelvis without contrast INDICATION: Right flank pain TECHNIQUE: Sequential axial images through the abdomen and pelvis obtained without IV contrast. Sagittal and coronal reformatted images were reconstructed from the axial data and reviewed. Exposure: One or more of the following in the visualized dose reduction techniques were utilized for this examination: 1. Automated exposure control 2. Adjustment of the MA and/or KV according to patient size 3. Use of iterative of reconstructive technique Comparisons: None FINDINGS: Heart size is normal. No pericardial effusion. Subtle patchy ground glass opacity at the right lower lobe. Diffuse hepatic steatosis. Spleen, pancreas, gallbladder and adrenals are unremarkable. No perinephric inflammation or hydronephrosis. No renal or ureteral calculi are identified. Bladder is partially distended and not well evaluated. Uterus is not enlarged. No abnormal adnexal mass. Few scattered diverticula noted at the descending and sigmoid colon appendix is normal. No free intra-abdominal air or fluid. No obstruction. There is a percutaneous G-tube noted. Abdominal aorta has normal course and caliber. No enlarged intra-abdominal lymph nodes are identified. No suspicious osseous lesions or acute fractures. IMPRESSION: 1. No renal or ureteral calculi. No evidence for obstructive uropathy. 2. Diffuse hepatic steatosis. 3. Patchy airspace disease at the right lung base may be infectious or inflammatory in etiology. Electronically signed by: Aniceto Olvera MD (05/31/2021 7:21 PM) [facility] DI[facility]ATED AND SIGNED BY: ANICETO OLVERA MD DATE: 05/31/211914 CC: WENDIE GUEVARA MD; LYNSEY JOHNSON APRN ~MTH0 0 (LYNSEY JOHNSON RADIATION THERAPIST) Heart Score: C/O Chest Pain: N/A Risk Factors: Risk Factors: DM, Current or recent (<one month) smoker, HTN, HLP, family history of CAD, obesity. Risk Scores: Score 0 - 3: 2.5% MACE over next 6 weeks - Discharge Home Score 4 - 6: 20.3% MACE over next 6 weeks - Admit for Clinical Observation Score 7 - 10: 72.7% MACE over next 6 weeks - Early Invasive Strategies (LYNSEY JOHNSON APRN) Course & Med Decision Making: Course & Med Decision Making Pertinent Labs and Imaging studies reviewed. (See chart for details) [] Patient presents to the emergency department for right-sided flank pain that started 2 to 3 days ago with nausea, vomiting. Patient has chronic diarrhea due to her feeding tube. Patient has a trach due to cancer. Work-up in the ER consisted of blood work, urinalysis and CT imaging of abdomen and pelvis. CBC unremarkable. AST 639, ALT 177, +UTI, CT shows diffuse hepatic steatosis and r. [place] [employer] airspace sisease. She is in remission for tongue cancer. she does not have an elevated torponin, lactic acidosis noted witha lactic of 3.5. Patient will be treated with IV an PO antibiotics. I discussed patients case with [facility] physician. I also discussed patients case with Dr. Guevara who advised to give patient a dose of IV abx in the ER and discharge her home with abx and have her see him in the office in the am. Patients vital signs are stable. I discussed with patient all findings and diagnostic testing as well as the need to follow-up with PCP for further evaluation and treatment or return to the ER if any new or worsening symptoms. Strict return precautions were also discussed at length. Patient voiced understanding and agreement with the plan. Patient is hemodynamically stable at the time of disposition. (LYNSEY JOHNSON APRN) Course & Med Decision Making Did not see or evaluate patient. Did not discuss patient with JUNIOR NET DEVELOPER. Generally agree with JUNIOR NET DEVELOPER's work-up and disposition per note. (NIKIA OLSEN MD) Dragon Disclaimer: Dragon Disclaimer: This electronic medical record was generated, in whole or in part, using a voice recognition dictation system. (YLNSEY JOHNSON APRN) Departure Departure: Impression: Primary Impression: Pyelonephritis Additional Impression: Pneumonia Qualified Codes: J18.9 - Pneumonia, unspecified organism Disposition: HOME / SELF CARE / HOMELESS Condition: GOOD Referrals: WENDIE GUEVARA MD (PCP) Patient Instructions: Pneumonia, Adult, [id number], Pyelonephritis, Adult Additional Instructions: You were seen in the emergency department today for flank pain. You were noted to have a kidney infection which will be treated with an antibiotic. You are also known to have a right lower lobe pneumonia which we will treat treated with the same antibiotic. I discussed her case with Dr. Canas and he would like to see you in his office first thing in the morning. Return to the emergency department if you develop worsening of your pain, severe vomiting, diarrhea, blood in your stools or vomit, high fevers refractory to treatment, weakness, shortness of breath, chest pain or any new or worsening concerns. Scripts Levofloxacin (LEVOFLOXACIN) 750 Mg Tablet 1 TAB PO DAILY for infection for 5 Days, #5 TAB 0 Refills Prov: LYNSEY JOHNSON APRN 05/31/21 LYNSEY JOHNSON APRN May 31, 2021 18:08 NIKIA OLSEN MD May 31, 2021 23:07
[2021-05-31] MEDS ORDERED: IV NORMAL SALINE 1,000ML 1,000 ML IV SCH (18:15)
[2021-05-31] MEDS ORDERED: ONDANSETRON PF 4 MG/2 ML VIAL. IVP ONE (18:15)
[2021-05-31 19:01] LABS: CALCIUM 8.7 mg/dL (8.5-10.1); CREATININE 0.5 mg/dL (0.6-1.0); GFR 129.6
[2021-05-31 19:02] LABS: BASO # 0.1 x10^3/uL (0.0-0.2); BASO % 1 % (0-3); EOS # 0.1 x10^3/uL (0.0-0.7); EOS % 1 % (0-3); HEMATOCRIT 42.3 % (36.0-47.0); LYMPH # 0.2 x10^3/uL (1.0-4.8); LYMPH % 5 % (24-48); MEAN CORPUSCULAR HEMOGLOBIN 32 pg (25-35); MEAN CORPUSCULAR HGB CONC 33 g/dL (31-37); MEAN CORPUSCULAR VOLUME 98 fL (79-100); MONO # 0.4 x10^3/uL (0.0-1.1); MONO % 8 % (0-9); NEUT # 3.8 x10^3uL (1.8-7.7); NEUT % 84 % (31-73); PLATELET COUNT 115 x10^3/uL (140-400); RED BLOOD COUNT 4.32 x10^6/uL (3.50-5.40); RED CELL DISTRIBUTION WIDTH 17.6 % (11.5-14.5); WHITE BLOOD COUNT 4.5 x10^3/uL (4.0-11.0)
[2021-05-31 19:07] LABS: ALBUMIN 3.2 g/dL (3.4-5.0); ALBUMIN/GLOBULIN RATIO 0.6 (1.0-1.7); TOTAL BILIRUBIN 0.5 mg/dL (0.2-1.0); TOTAL PROTEIN 8.7 g/dL (6.4-8.2)
[2021-05-31 19:11] LABS: BACTERIA,URINE MANY /HPF (0-FEW); CLARITY,URINE HAZY; COLOR,URINE YELLOW; GLUCOSE,URINE NEG (NEG); NITRITE,URINE POS (NEG); SQUAMOUS EPITHELIAL CELL,UR FEW /LPF; UROBILINOGEN,URINE 0.2 mg/dL (0.2 mg/dL)
--- NOTE | 2021-05-31 19:23 | RAD ---
Exam: CT of abdomen and pelvis without contrast INDICATION: Right flank pain TECHNIQUE: Sequential axial images through the abdomen and pelvis obtained without IV contrast. Sagit milvia and coronal reformatted images were reconstructed from the axial data and reviewed. Exposure: One or more of the following in the visualized dose reduction techniques were utilized for this examination: 1. Automated exposure control 2. Adjustment of the MA and/or KV according to patient size 3. Use of iterative of reconstructive technique Comparisons: None FINDINGS: Heart size is normal. No pericardial effusion. Subtle patchy ground glass opacity at the right lower lobe. Diffuse hepatic steatosis. Spleen, pancreas, gallbladder and adrenals are unremarkable. No perinephric inflammation or hydronephrosis. No renal or ureteral calculi are identified. Bladder is partially distended and not well evaluated. Uterus is not enlarged. No abnormal adnexal ma ss. Few scattered diverticula noted at the descending and sigmoid colon appendix is normal. No free intra -abdominal air or fluid. No obstruction. There is a percutaneous G-tube noted. Abdominal aorta has normal course and caliber. No enlarged intra-abdominal lymph nodes are identified. No suspicious osseous lesions or acute fractures. IMPRESSION: 1. No renal or ureteral calculi. No evidence for obstructive uropathy. 2. Diffuse hepatic steatosis. 3. Patchy airspace disease at the right lung base may be infectious or inflammatory in etiology. Electronically signed by: Aniceto Vences MD (05/31/2021 7:21 PM) [facility]
[2021-05-31 19:41] LABS: % BASOS 2 % (0-3); % EOS 1 % (0-5); % LYMPHS 7 % (24-48); % MONOS 3 % (0-10); % SEGS 87 % (35-66); ANISOCYTOSIS SLIGHT; PLT ESTIMATE DECREASED (ADEQUATE)
[2021-05-31] MEDS ORDERED: IBUPROFEN 600 MG TABLET. PO ONE (19:45)
[2021-05-31] MEDS ORDERED: IV NORMAL SALINE 50ML 50 ML ONE (19:55)
[2021-05-31] MEDS ORDERED: cefTRIAXone SODIUM 1 GM VIAL ONE (19:56)
--- NOTE | 2021-05-31 20:41 | RAD ---
Exam: Chest one view INDICATION: Nausea vomiting TECHNIQUE: Frontal view of the chest Comparisons: 11/01/2019 FINDINGS: Tracheostomy tube noted. The cardiomediastinal silhouette and pulmonary vessels are within normal limits. Patchy airspace disease at the right lung base. No pleural effusion. IMPRESSION: Right basilar airspace disease. Electronically signed by: Aniceto Vences MD (05/31/2021 8:39 PM) [facility]
[2021-05-31 21:52] VITALS: BP 141/91
[2021-05-31] MEDS ORDERED: LEVO750T5 PO (21:59)
[2021-05-31] MEDS ORDERED: levoFLOXacin 250 MG TABLET PO ONE (22:00)
--- NOTE | 2021-06-01 04:02 | EKG ---
[address] [address] Test Date: 2021-05-31 Test Time: 21:06:51 Pat Name: YO WILKINS Department: Room: Gender: F [employer]: : 1970 Requested By: LYNSEY JOHNSON Order Number: [id number] Reading MD: Bereket Cardoso MD Measurements Intervals [place] Rate: 98 P: -5 [place]: 116 QRS: 65 QRSD: 82 T: 37 QT: 340 QTc: 436 Interpretive Statements SINUS RHYTHM CONSIDER SEPTAL INFARCT Electronically Signed On 06-01-2021 9:47:30 ICING MIXER by Bereket Cardoso MD
[2021-06-01] MEDS ORDERED: VENL37.5 PO (16:38)
[2021-06-01] MEDS ORDERED: BUPR150T21 PO (16:38)
== END 2021-05-31 22:17 | disposition home or self-care (01) ==
LOC: ER 17:04
DX: N12 Tubulo-interstitial nephritis, not specified as acute or chronic (principal); J18.9 Pneumonia, unspecified organism; I25.10 Atherosclerotic heart disease of native coronary artery without angina pectoris; F10.20 Alcohol dependence, uncomplicated; Z85.810 Personal history of malignant neoplasm of tongue; Z87.891 Personal history of nicotine dependence; Y90.9 Presence of alcohol in blood, level not specified
CPT/HCPCS: 36415; 71045; 74176; 80053; 81001; 83605; 83690; 84484; 85007; 85025; 87077; 87086; 87186; 93005; 96361; 96365; 96375; 99285; J0696; J2405; J3010; J7030